=== PATIENT | male | born 1995 | race Caucasian/White ===

== ENCOUNTER 2020-10-27 11:23 | Emergency (ER) | payer OTHER ==
[2020-10-27 11:56] LABS: HEMOGLOBIN 16.2 gm/dl (14.0-17.5); RED BLOOD COUNT 5.11 M/UL (4.20-5.50); WHITE BLOOD COUNT 9.9 K/UL (4.5-11.0)
[2020-10-27 12:45] LABS: BUN/CREATININE RATIO 14 (0-10)
== END 2020-10-27 14:08 | disposition home or self-care (01) ==
LOC: ER1 11:23
PROVIDERS: Family Medicine
DX: R07.89 Other chest pain (principal); M25.562 Pain in left knee; R42 Dizziness and giddiness
CPT/HCPCS: 71045; 73562; 80053; 81001; 82550; 82553; 83735; 83874; 84439; 84443; 84484; 85025; 93005; 99285